=== PATIENT | female | born 1940 | race Caucasian/White ===

== ENCOUNTER → 2019-04-10 | Outpatient (CLI) | payer OTHER ==
[~2019-04-10] MED LIST: ALEVE220 MG; ASPIRIN325; BIOTIN10 MG PO; CHLORTHALIDONE25 MG PO; DEXILANT60 MG PO; FISH OIL 1,2001 EAC3 PO; HYDROCODONE-APA1 TA1 PO; LISINOPRIL20 MG PO; LORTAB PO; MELOXICAM7.5 MG PO; MULTIVITAMINS PO; NAPROSYN500 MG PO; NORCO 5-325 TA1 EACH PO; PEPCID AC20 M1 PO; PERCOCET 5-3251 EACH PO; PREDNISONE 20 M20 MG PO; PROTONIX40 M2 PO; REGLAN 10 MG TA10 MG PO; ROCEPHIN 11 GM/1001 IV; SIMVASTATIN40 MG PO; TIZANIDINE HCL4 MG PO; TRAMADOL 50 MG50 MG PO; ZOCOR40 MG PO
== END ==
LOC: MRI 09:43
DX: S83.281A Other tear of lateral meniscus, current injury, right knee, initial encounter (principal); M25.461 Effusion, right knee; X58.XXXA Exposure to other specified factors, initial encounter; Y93.89 Activity, other specified; Y92.89 Other specified places as the place of occurrence of the external cause; Y99.8 Other external cause status